=== PATIENT | female | born 1995 | race Caucasian/White ===

== ENCOUNTER → 2024-12-11 | Outpatient (CLI) | payer SELFPAY ==
[~2024-12-11] MED LIST: CLON.1 PO; CLON.2 PO; DOXY100 PO; FLUO20 PO; HYDR1TAB94 PO; PROM25 PO; SULTRIDS PO; Ultram50 MG PO; Verotin-Gr Cap1 EACH PO; Zofran4 MG PO
== END ==
LOC: LAB 15:30 → LAB SHORT 15:30
DX: J02.9 Acute pharyngitis, unspecified (principal)
CPT/HCPCS: 87081; 87147